=== PATIENT | female | born 1940 | race Caucasian/White ===

== ENCOUNTER → 2016-11-26 | Outpatient (CLI) | payer MEDICARE, BC ==
--- NOTE | 2016-11-27 10:44 | MM ---
Reason for exam: screening (asymptomatic). Last mammogram was performed 1 year and 1 month ago. History: Patient is postmenopausal. Took estrogen for 19 years 1 month. Physical Findings: A clinical breast exam by your physician is recommended on an annual basis and results should be correlated with mammographic findings. MG Screening Mammo w CAD Bilateral CC and MLO view(s) were taken. Prior study comparison: November 06, 2015, bilateral MG screening mammo w CAD. September 17, 2014, bilateral MG screening mammo w CAD. There are scattered fibroglandular densities. Finding: There are typically benign calcifications. No significant changes in finding since November 06, 2015 and September 17, 2014. ASSESSMENT: Benign, BI-RAD 2 RECOMMENDATION: Routine screening mammogram of both breasts in 1 year.
== END | disposition home or self-care (01) ==
LOC: RADMAMWWP 12:04
PROVIDERS: ATTEND Family Medicine
DX: Z12.31 Encounter for screening mammogram for malignant neoplasm of breast (principal)

== ENCOUNTER → 2018-04-04 | Outpatient (CLI) | payer MEDICARE, BC ==
--- NOTE | 2018-04-04 08:57 | MR ---
EXAMINATION TYPE: MR brain wo con DATE OF EXAM: 04/04/2018 COMPARISON: NONE HISTORY: 78-year-old female with dizziness and giddiness TECHNIQUE: Multiplanar, multisequence images of the brain and brainstem were acquired without IV con trast. Diffusion weighted imaging is performed. FINDINGS: No evidence for acute infarction, hemorrhage, mass, mass effect, midline shift, herniation, effacemen t of basal cisterns, or extra-axial fluid collection. The ventricles and sulci are age-appropriate with mild generalized supratentorial volume loss. Major intracranial flow voids are intact. T2/FLAIR weighted sequences show minimal scattered burden of right white matter change in the subcort ical, periventricular, and deep white matter regions of both cerebral hemispheres numbering approxima tely 5-10 on the left and less than 5 on the right. Midline structures demonstrate normal morphology. The craniocervical junction is normal. Trace mucosal thickening in the ethmoid air cells. The globes are intact. IMPRESSION: Scattered T2 bright white matter change likely relating to minimal burden of chronic small vessel isc hemic disease. There is mild age-related cerebral atrophy. Otherwise, no intracranial abnormality see n.
== END | disposition home or self-care (01) ==
LOC: RADMRIMAIN 07:41
PROVIDERS: ATTEND Family Medicine
DX: G31.9 Degenerative disease of nervous system, unspecified (principal)
CPT/HCPCS: 70551

== ENCOUNTER → 2018-08-04 | Outpatient (CLI) | payer MEDICARE, BC ==
--- NOTE | 2018-08-04 13:05 | XR ---
EXAMINATION TYPE: XR shoulder complete LT DATE OF EXAM: 08/04/2018 CLINICAL HISTORY: Chronic left shoulder pain. TECHNIQUE: Three views of the left shoulder are obtained. COMPARISON: None. FINDINGS: Demineralization is present. There is no acute fracture/dislocation evident in the left sh oulder. There is capsular hypertrophy and moderate joint space loss at acromioclavicular joint. Mild joint space loss glenohumeral joint is present. The visualized ribs are intact and unremarkable. IMPRESSION: As above.
== END ==
LOC: RADXRMAIN 12:18
PROVIDERS: ATTEND Family Medicine
DX: M25.512 Pain in left shoulder (principal)

== ENCOUNTER → 2019-12-25 | Outpatient (CLI) | payer MEDICARE, BC ==
--- NOTE | 2019-12-25 09:39 | XR ---
EXAMINATION TYPE: XR knee complete RT DATE OF EXAM: 12/25/2019 CLINICAL HISTORY: Right knee pain TECHNIQUE: Three views of the right knee are obtained. COMPARISON: 12/15/2012 FINDINGS: The right knee arthroplasty maintains normal alignment. There is new lucency at the caudal margin of the tibial component of the medial tibial plateau and lateral tibial plateau that could rep resent hardware loosening. The femoral component is unremarkable and maintains alignment. No acute fr acture seen of the right knee. IMPRESSION: 1. New lucency surrounding the tibial component of the right knee arthroplasty that may represent loo sening. Three-phase bone scan could further assess this finding. 2. No acute fracture or dislocation in the right knee.
== END | disposition home or self-care (01) ==
LOC: RADXRMAIN 08:33
PROVIDERS: ATTEND Family Medicine
DX: M25.861 Other specified joint disorders, right knee (principal); Z98.890 Other specified postprocedural states

== ENCOUNTER → 2020-01-12 | Outpatient (CLI) | payer MEDICARE, BC ==
[2020-01-12 16:44] LABS: Chol/HDL Ratio 2.91; LDL Cholesterol,Calculated 73.8 mg/dL (0.0-131.0); VLDL Calculation 29.2 mg/dL (5.00-40.00)
== END | disposition home or self-care (01) ==
LOC: LABWHC1 08:31
PROVIDERS: ATTEND Family Medicine
DX: E78.2 Mixed hyperlipidemia (principal)
CPT/HCPCS: 36415; 80061; 84450; 84460

== ENCOUNTER → 2021-06-20 | Outpatient (CLI) | payer MEDICARE, BC ==
--- NOTE | 2021-06-20 09:48 | XR ---
EXAMINATION TYPE: XR lumbar spine 2 or 3V DATE OF EXAM: 06/20/2021 CLINICAL HISTORY: pain TECHNIQUE: Three views of the lumbar spine are submitted. COMPARISON: None. FINDINGS: There are 5 lumbar type vertebral bodies identified. The lumbar spine shows satisfactory alignment w ithout evidence of acute fracture or dislocation. Vertebral body heights are within normal limits. Se [place] degenerative disc disease with vacuum disks noted at multiple lower lumbar levels. Curvature of the lumbar spine convex to the left. Facet joint arthropathy and ventral spondylosis. The overlying s oft tissue appears unremarkable. IMPRESSION: No acute fracture or dislocation is seen in the lumbar spine. ICD 10 NO FRACTURE, INITIAL EVALUATION
== END | disposition home or self-care (01) ==
LOC: RADXRMAIN 09:11
PROVIDERS: ATTEND Family Medicine
DX: M54.5 Low back pain (principal)
CPT/HCPCS: 72100

== ENCOUNTER → 2022-12-08 | Outpatient (CLI) | payer MEDICARE, BC ==
--- NOTE | 2022-12-08 10:48 | BD ---
EXAMINATION TYPE: Axial Bone Density DATE OF EXAM: 12/08/2022 COMPARISON: 2008 CLINICAL HISTORY: 82 years year old Female. ICD-10 CODE: M81.0 AGE-RELATED OSTEOPOROSIS W/O CURRENT PATHOLO Height: 5'0 Weight: 130 FRAX RISK QUESTIONS: Secondary Osteoporosis: RISK FACTORS HISTORY OF: Postmenopausal woman: Y Lost more than 2 inches in height since high school: y MEDICATIONS: Additional Medications: cholesterol, unsure Additional History: EXAM MEASUREMENTS: Bone mineral densitometry was performed using the [employer] System. Bone mineral density as measured about the Lumbar spine is: ----- L1-L4(G/cm2): 1.038 T Score Values are as follows: ----- L1: -1.8 ----- L2: -2.2 ----- L3: -0.7 ----- L4: -0.2 ----- L1-L4: -1.2 Bone mineral density has: Decreased -2.5% since study of: 06/20/2009 Bone mineral density about the R hip (g/cm2): 0.750 Bone mineral density about the L hip (g/cm2): 0.709 T Score values are as follows: -----R Neck: -2.1 -----L Neck: -2.4 -----R Total: -1.9 -----L Total: -1.8 Bone mineral density has: Decreased -17.0% since study of: 06/20/2009 FRAX%s: The graph provided illustrates a 18.4% chance for a major osteoporotic fx and a6.5% chance f or the hips probability for fx in 10 years time. IMPRESSION: Osteopenia (T Score between -2.5 and -1). There is slightly increased risk of fracture and the patient may be considered for treatment. Re-Screen 2-5 years. NOTE: T-SCORE=SD OF THE YOUNG ADULT MEAN.
== END | disposition home or self-care (01) ==
LOC: RADBDWWP 09:44
PROVIDERS: ATTEND Psychiatry & Neurology Neurology
DX: M81.0 Age-related osteoporosis without current pathological fracture (principal); M85.89 Other specified disorders of bone density and structure, multiple sites
CPT/HCPCS: 77080